=== PATIENT | female | born 1935 | race African-American/Black ===

== ENCOUNTER 2017-02-28 11:37 | Emergency (ER) | payer MEDICARE, BC ==
[~2017-02-28] VITALS: Ht 167.6 cm; Wt 45.4 kg
[~2017-02-28 11:37] MED LIST: ALPR0.254 PO; AMOX1TAB11 PO; ASPI-482 PO; CALC500T27 PO; CALC667C PO; CHOL5000 PO; DICL50TA2 PO; ESCI10TA PO; FENT1PAT91 TD; GABA-585 PO; HYDR-2161 PO; HYDR200T PO; HYDR25TA9 PO; LISI10TA2 PO; METH-37 PO; METH100V IJ; METO-269 PO; OXYC-250 PO; OXYC1TAB7 PO; OXYC1TAB9 PO; PRAV40TA2 PO; SENN-22 PO
[2017-02-28] MEDS ORDERED: OXYCODONE/APAP 5/325 TABLET. PO ONE (12:45)
--- NOTE | 2017-02-28 13:22 | ED.ADGEN ---
Past Medical History Past Medical History: Anxiety, Arthritis, High Cholesterol, Hypertension, Other Additional Past Medical Histor: osteoporosis Past Surgical History: , Other Additional Past Surgical Histo: randa in back Alcohol Use: None Drug Use: None Adult General Chief Complaint Chief Complaint: MECHANICAL FALL HPI HPI Patient is a 81 year old -[place] female with chronic gait instability who presents with right-sided headache, neck pain, right arm pain, low back pain after accidental falls this morning. Patient normally walks with a walker but was leaned over twice this morning to crop picker items on the floors. Both times, the patient fell striking her head and landing on her right side. Patient ports headache posterior neck pain, but denies loss of consciousness. She is not on anticoagulation therapy. Patient reports right sided muscle skeletal pain but is able to move flexed right upper and lower extremities does not have obvious deformities. She has not attempted to weight-bear as symptoms most recent fall. Patient's accompanied by her daughter at bedside to assist with a history. Patient lives at home with daughter. Review of Systems Review of Systems ROS as per HPI. Current Medications Current Medications Current Medications Medications (Trade) Dose Ordered Sig/Maria Victoria Start Time Stop Time Status Last Admin Dose Admin Oxycodone/ Acetaminophen (Percocet 5/325) 1 tab 1X ONCE 02/28/17 12:45 02/28/17 12:46 DC 02/28/17 13:46 1 TAB Allergies Allergies Allergies Coded Allergies Type Severity Reaction Last Updated Verified morphine Allergy Unknown 02/28/17 No Physical Exam Physical Exam Constitutional: Well developed, well nourished, no acute distress. HENT: Normocephalic, atraumatic, bilateral external ears normal, oropharynx moist, no oral exudates, nose normal. Eyes: PERRLA, EOMI, conjunctiva normal. Neck: Normal range of motion, no tenderness. Cardiovascular:Heart rate regular rhythm, no murmur. Lungs & Thorax: Bilateral breath sounds clear to auscultation. Abdomen: Bowel sounds normal, soft, no tenderness. Skin: Warm, dry. Back: No midline tenderness. Extremities: Right upper extremity, no obvious deformities. Pain on range of motion of right shoulder, elbow and right hip and knee. Neurologic: Alert and oriented X 3, no unilateral weakness. Current Patient Data Vital Signs Vital Signs Date Time Temp Pulse Resp B/P Pulse Ox O2 Delivery O2 Flow Rate FiO2 02/28/17 14:42 85 19 192/85 Room Air 02/28/17 14:12 98 02/28/17 12:25 98.2 98.2 EKG EKG [] Radiology/Procedures Radiology/Procedures [CT Head/CT cervical spine/ CT lumbar spine: Negative per radiology report R Humerus/ R hip/pelvis: Negative per radiology report] Impressions: Musculoskeletal strain minor head injury secondary to multiple falls Course & Med Decision Making Course & Med Decision Making Pertinent Labs and Imaging studies reviewed. (See chart for details) [Accidental fall due to loss of balance. Patient denies medical symptoms prior to fall. No evidence of acute intracranial or bony injury on imaging studies. Pain addressed improved with treatment. Patient discharged home to daughter. Daughter given strict instructions to ensure patient utilizes walker or provided assisted gait. ] Dragon Disclaimer Dragon Disclaimer This electronic medical record was generated, in whole or in part, using a voice recognition dictation system. JOHNNY POSADA DO February 28, 2017 13:22
--- NOTE | 2017-02-28 13:35 | RAD ---
Indication fall. Head and neck pain. Noncontrast images of the head were obtained. The cervical spine was also evaluated. Images of the cervical spine were reformatted in the coronal and sagittal planes. The head is compared to a study 10/03/2016. CT head: Findings The calvarium appears unremarkable. The visualized paranasal sinuses appear normal. There is underlying atrophy. There is no subdural or epidural hematoma. There is no hemorrhage. There is no mass or midline shift. A significant change compared to the previous exam is not seen. CT cervical spine: Findings. There are underlying emphysematous changes at the lung apices. The thyroid is enlarged with some associated mediastinal extension similar to the previous exam. A dominant soft tissue mass in the neck is not seen. Review of axial images demonstrates spondylitic changes. A fracture or acute finding is not seen. Similar findings are seen on the reformatted images. No acute finding is apparent. 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 No acute finding seen. Chronic changes in the head. No acute finding seen PQRS Compliance Statement: One or more of the following individualized dose reduction techniques were utilized for this examination: 1. Automated exposure control 2. Adjustment of the mA and/or kV according to patient size 3. Use of iterative reconstruction technique
--- NOTE | 2017-02-28 13:44 | RAD ---
Indication fall, pain. An AP view of the pelvis was obtained as well as individual targeted AP and frog leg views of the right hip. No acute bony finding is seen. Postoperative changes at the lumbosacral junction are noted. IMPRESSION: No acute bony finding
--- NOTE | 2017-02-28 13:46 | RAD ---
Indication fall, pain. AP and lateral views of the right humerus were obtained as well as an additional view targeted to the shoulder. An acute bony finding is not seen. There are substantial degenerative changes at the glenohumeral joint. Some soft tissue calcification/ossification is additionally noted. IMPRESSION: No acute bony finding
--- NOTE | 2017-02-28 13:59 | RAD ---
Indication fall, pain. Axial images through the lumbar spine were obtained and reformatted in the coronal and sagittal planes. There are emphysematous changes seen in the visualized lung bases. A significant soft tissue finding is not seen and the visualized abdomen or pelvis. Diverticular disease is seen visualized large bowel. Postoperative changes of a spinal fixation extending from L3 through there are degenerative changes at T11-12. An acute bony finding is not seen. IMPRESSION: Chronic changes. No acute findings seen PQRS Compliance Statement: One or more of the following individualized dose reduction techniques were utilized for this examination: 1. Automated exposure control 2. Adjustment of the mA and/or kV according to patient size 3. Use of iterative reconstruction technique
[2017-02-28 14:42] VITALS: BP 192/85
== END 2017-02-28 16:18 | disposition home or self-care (01) ==
LOC: ER 11:37
DX: M25.511 Pain in right shoulder (principal); R51 Headache; M54.2 Cervicalgia; M54.5 Low back pain; M25.521 Pain in right elbow; M25.551 Pain in right hip; M25.561 Pain in right knee; I10 Essential (primary) hypertension; E78.00 Pure hypercholesterolemia, unspecified; M19.90 Unspecified osteoarthritis, unspecified site; Z88.5 Allergy status to narcotic agent
CPT/HCPCS: 70450; 72125; 72131; 73060; 73502; 99284-25